=== PATIENT | male | born 1975 | race Hispanic/Latino ===

== ENCOUNTER 2016-12-02 15:21 | Emergency (ER) | payer BC ==
[2016-12-02] MEDS ORDERED: ZOFRAN IV ONE (16:45)
[2016-12-02] MEDS ORDERED: NACL 0.9% 1000 ML 1,000 ML IV ONE (16:45)
[2016-12-02] MEDS ORDERED: MORPHINE IV ONE ×2 (16:45→20:07)
[2016-12-02] MEDS ORDERED: ZOSYN/NS 4.5GM/100ML 4.5 GM/100 ML VIAL IV ONE (16:51)
--- NOTE | 2016-12-02 16:51 | Emergency Department Report ---
Entered by LEEROY HENNING, acting as scribe for ZACHERY CALDERA NP. Chief Complaint: Abdominal Pain Stated Complaint: APPENDICITIS/INFECTED INCISION Time Seen by Provider: 12/02/16 16:42 - HPI History of Present Illness: Pt c/o RLQ pain that began today. Notes that he had a hernia repair from area 4 months ago. Reports constipation. - ROS Review of Systems: All system are negative unless stated in HPI above. - Exam Vital Signs: Vital Signs 12/02/16 16:12 Temperature 98.3 F Pulse Rate 70 Respiratory 16 Rate Blood Pressure 128/73 O2 Sat by Pulse 100 Oximetry Physical Exam: General: well nourished, well developed, 41 year old male Abdomen: RLQ tenderness. Positive rebound. Positive McBurney's point. Positive obturator. Positive heel strike. erythema RLQ, MSE screening note: Focused history and physical exam performed. Due to findings the following was ordered: s/p Hernia repair 4 months ago, rlq pain erythema , pos mcburneys,obturator and heal stike, n/v unable to tolerate po intake See above ED Medical Decision Making - Medical Decision Making Patient screened by provider in triage area. Labs sent in for patient. Patient to be seen by MD on main ED side. ED Disposition for MSE Condition: Stable This documentation as recorded by the scribe,LEEROY HENNING,accurately reflects the service I personally performed and the decisions made by me, ZACHERY CALDERA, JOSE.
[2016-12-02 17:19] LABS: Basophils % (Auto) 0.8 % (0.0-1.8); Hematocrit 41.8 % (35.5-45.6); Hemoglobin 13.8 gm/dl (11.8-15.2); Mean Corpuscular HGB Conc 33 % (32-34); Mean Corpuscular Hemoglobin 32 pg (28-32); Mean Corpuscular Volume 95 fl (84-94); Platelet Count 310 K/mm3 (140-440); Red Blood Count 4.39 M/mm3 (3.65-5.03); Red Cell Distribution Width 13.1 % (13.2-15.2); White Blood Count 8.7 K/mm3 (4.5-11.0)
[2016-12-02 17:28] LABS: Alanine Aminotransferase 16 units/L (7-56); Albumin 4.7 g/dL (3.9-5); Albumin/Globulin Ratio 1.9 %; Alkaline Phosphatase 70 units/L (35-129); Anion Gap 21 mmol/L; Blood Urea Nitrogen 16 mg/dL (9-20); Calcium 9.3 mg/dL (8.4-10.2); Carbon Dioxide 27 mmol/L (22-30); Chloride 99.7 mmol/L (98-107); Glucose 80 mg/dL (75-100); Potassium 4.3 mmol/L (3.6-5.0); Sodium 143 mmol/L (137-145); Total Protein 7.2 g/dL (6.3-8.2)
--- NOTE | 2016-12-02 18:35 | Cat Scan Report ---
FINAL REPORT EXAM: CT ABDOMEN PELVIS WO CON HISTORY: RLQ Pain , r/o appendicitis TECHNIQUE: Standard unenhanced CT of the abdomen and pelvis. Coronal and sagittal reconstruction was also performed. none. FINDINGS: No acute inflammatory process is seen in the right lower quadrant. The cecum dips into the right pelvis. The appendix dips into the deep right pelvis and is normal. Within the abdomen, the liver, pancreas, gallbladder, adrenal glands, and kidneys are unremarkable. Punctate splenic calcifications are likely granulomatous. No evidence for retroperitoneal or pelvic lymphadenopathy is seen. The bowel loops have normal caliber. No soft tissue mass, fluid collection, inflammatory change, or free air is seen within the abdomen or pelvis. Within the pelvis, the bladder is unremarkable. The prostate is normal. No evidence for mass or lymphadenopathy is seen in the pelvis. Images through the upper abdomen include the lung bases which are expanded and clear. Bony structures show no focal abnormalities and are intact. Narrowing of the superior right hip joint is likely related to mild osteoarthritis. IMPRESSION: No acute intra-abdominal process noted. No evidence for appendicitis. The appendix is normal.
[2016-12-02 18:49] LABS: Bilirubin,Urine NEG (Negative); Blood,Urine NEG (Negative); Ketones,Urine NEG (Negative); Leukocyte Esterase,Urine NEG (Negative); Mucus,Urine FEW /HPF; Nitrite,Urine NEG (Negative); Protein,Urine <15 mg/dL mg/dL (Negative); Urobilinogen,Urine < 2.0 mg/dL (<2.0); WBC,Urine < 1.0 /HPF (0.0-6.0)
--- NOTE | 2016-12-02 21:28 | Emergency Department Report ---
- General Chief complaint: Abdominal Pain Stated complaint: APPENDICITIS/INFECTED INCISION Time Seen by Provider: 12/02/16 16:44 Source: patient Mode of arrival: Ambulatory Limitations: No Limitations - History of Present Illness Initial comments: Maya josé a 41 yr old male, unknown to me, who presents to the ED c/o RLQ erythema with pain. Pt reports he had an R sided inguinal hernia repair 4 months ago with no complications, but for the past 3 days he noticed some pain and redness to the RLQ of his abdomen, above the surgical incision. Pt denies any trauma or skin infections in the past. Pt has tried OTC pain pills with no relief. He was evaluated by the urgent care and then instructed to come to the ED for further evaluation. Pt denies any fevers, chills, RESENDIZ, dizziness, NVD, SOB, CP, changes in urinary or bowel movements, travel, or sick contacts. - Related Data Previous Rx's Medication Instructions Recorded Last Taken Type ALBUTEROL Inhaler [ProAir HFA 1 puff IH BID PRN #1 inha 04/25/15 Unknown Rx Inhaler] Amoxicillin/K Clav Tab [Augmentin 1 tab PO Q12HR #20 tab 04/25/15 Unknown Rx 875MG TAB] Promethazine Dm [Phenergan DM 10 ml PO TID PRN #150 ml 04/25/15 Unknown Rx 6.25-15 mg/5 ml] predniSONE [Deltasone] 20 mg PO QDAY #5 tab 04/25/15 Unknown Rx Acetaminophen/Codeine [Tylenol 1 tab PO Q6H PRN #15 tab 07/21/15 Unknown Rx /Codeine # 3 tab] Erythromycin [Erythromycin Ophth 0.5 inch OD BID #1 tube 07/21/15 Unknown Rx Oint] Ibuprofen [Motrin 800 MG tab] 800 mg PO Q8HR PRN #30 tablet 07/21/15 Unknown Rx Penicillin Vk [Veetids TAB] 500 mg PO QID #80 tablet 07/21/15 Unknown Rx Cephalexin [Keflex] 500 mg PO Q12HR #20 cap 12/02/16 Unknown Rx HYDROcodone/APAP 5-325 [[place] 1 each PO Q6HR PRN #12 tablet 12/02/16 Unknown Rx 5/325] Sulfamethoxazole/Trimethoprim 1 each PO BID #20 tablet 12/02/16 Unknown Rx [Bactrim DS TAB] Allergies Allergy/AdvReac Type Severity Reaction Status Date / Time No Known Allergies Allergy Unverified 12/02/16 16:16 Abscess Boil HPI - HPI Chief Complaint: Abdominal Pain Stated Complaint: APPENDICITIS/INFECTED INCISION Time Seen by Provider: 12/02/16 16:44 Home Medications: Previous Rx's Medication Instructions Recorded Last Taken Type ALBUTEROL Inhaler [ProAir HFA 1 puff IH BID PRN #1 inha 04/25/15 Unknown Rx Inhaler] Amoxicillin/K Clav Tab [Augmentin 1 tab PO Q12HR #20 tab 04/25/15 Unknown Rx 875MG TAB] Promethazine Dm [Phenergan DM 10 ml PO TID PRN #150 ml 04/25/15 Unknown Rx 6.25-15 mg/5 ml] predniSONE [Deltasone] 20 mg PO QDAY #5 tab 04/25/15 Unknown Rx Acetaminophen/Codeine [Tylenol 1 tab PO Q6H PRN #15 tab 07/21/15 Unknown Rx /Codeine # 3 tab] Erythromycin [Erythromycin Ophth 0.5 inch OD BID #1 tube 07/21/15 Unknown Rx Oint] Ibuprofen [Motrin 800 MG tab] 800 mg PO Q8HR PRN #30 tablet 07/21/15 Unknown Rx Penicillin Vk [Veetids TAB] 500 mg PO QID #80 tablet 07/21/15 Unknown Rx Cephalexin [Keflex] 500 mg PO Q12HR #20 cap 12/02/16 Unknown Rx HYDROcodone/APAP 5-325 [[place] 1 each PO Q6HR PRN #12 tablet 12/02/16 Unknown Rx 5/325] Sulfamethoxazole/Trimethoprim 1 each PO BID #20 tablet 12/02/16 Unknown Rx [Bactrim DS TAB] Allergies/Adverse Reactions: Allergies Allergy/AdvReac Type Severity Reaction Status Date / Time No Known Allergies Allergy Unverified 12/02/16 16:16 ED Review of Systems ROS: Stated complaint: APPENDICITIS/INFECTED INCISION Other details as noted in HPI Comment: All other systems reviewed and negative ED Past Medical Hx - Past Medical History Previous Medical History?: No - Surgical History Past Surgical History?: Yes Additional Surgical History: inguinal hernia repair - Social History Smoking Status: Current Every Day Smoker Substance Use Type: None - Medications Home Medications: Home Medications Medication Instructions Recorded Confirmed Last Taken Type ALBUTEROL Inhaler [ProAir HFA 1 puff IH BID PRN #1 inha 04/25/15 Unknown Rx Inhaler] Amoxicillin/K Clav Tab [Augmentin 1 tab PO Q12HR #20 tab 04/25/15 Unknown Rx 875MG TAB] Promethazine Dm [Phenergan DM 10 ml PO TID PRN #150 ml 04/25/15 Unknown Rx 6.25-15 mg/5 ml] predniSONE [Deltasone] 20 mg PO QDAY #5 tab 04/25/15 Unknown Rx Acetaminophen/Codeine [Tylenol 1 tab PO Q6H PRN #15 tab 07/21/15 Unknown Rx /Codeine # 3 tab] Erythromycin [Erythromycin Ophth 0.5 inch OD BID #1 tube 07/21/15 Unknown Rx Oint] Ibuprofen [Motrin 800 MG tab] 800 mg PO Q8HR PRN #30 tablet 07/21/15 Unknown Rx Penicillin Vk [Veetids TAB] 500 mg PO QID #80 tablet 07/21/15 Unknown Rx Cephalexin [Keflex] 500 mg PO Q12HR #20 cap 12/02/16 Unknown Rx HYDROcodone/APAP 5-325 [[place] 1 each PO Q6HR PRN #12 tablet 12/02/16 Unknown Rx 5/325] Sulfamethoxazole/Trimethoprim 1 each PO BID #20 tablet 12/02/16 Unknown Rx [Bactrim DS TAB] ED Physical Exam - General Limitations: No Limitations General appearance: alert, in no apparent distress - Head Head exam: Present: atraumatic, normocephalic - Eye Eye exam: Present: normal appearance - ENT ENT exam: Present: mucous membranes moist - Neck Neck exam: Present: normal inspection - Respiratory Respiratory exam: Present: normal lung sounds bilaterally. Absent: respiratory distress - Cardiovascular Cardiovascular Exam: Present: regular rate, normal rhythm. Absent: systolic murmur, diastolic murmur, rubs, gallop - GI/Abdominal GI/Abdominal exam: Present: soft, tenderness (RLQ overlying erythema), normal bowel sounds, other (RLQ inguinal hernia surgical scar, well healed, no erythema over the incision). Absent: distended, guarding, rebound, rigid, mass , pulsatile mass, hernia - Rectal Rectal exam: Present: deferred - Extremities Exam Extremities exam: Present: normal inspection - Back Exam Back exam: Present: normal inspection - Neurological Exam Neurological exam: Present: alert, oriented X3 - Psychiatric Psychiatric exam: Present: normal affect, normal mood - Skin Skin exam: Present: warm, dry, erythema (RLQ, marked with pen). Absent: rash ED Course Vital Signs 12/02/16 12/02/16 12/02/16 16:12 17:42 17:46 Temperature 98.3 F 98.1 F Pulse Rate 70 66 Respiratory 16 16 16 Rate Blood Pressure 128/73 Blood Pressure 104/72 [Left] O2 Sat by Pulse 100 97 100 Oximetry 12/02/16 12/02/16 19:51 21:46 Temperature 98.0 F 97.9 F Pulse Rate 63 74 Respiratory 20 15 Rate Blood Pressure Blood Pressure 126/78 115/72 [Left] O2 Sat by Pulse 96 99 Oximetry ED Medical Decision Making - Lab Data Result diagrams: 12/02/16 16:51 12/02/16 16:51 - Radiology Data Radiology results: report reviewed, image reviewed CT abd pelvis: No acute intraabdominal pathology noted - Medical Decision Making Discussed CT results with the patient. This is likely a superficial skin infection, will treat as cellulitis. Area marked with pen, instructed patient to continue antibiotics prescribed and to monitor the site. If the redness extends beyond the lines he is to return to the ED, otherwise follow up with his PMD Critical care attestation.: If time is entered above; I have spent that time in minutes in the direct care of this critically ill patient, excluding procedure time. ED Disposition Clinical Impression: Cellulitis, Abdominal pain Disposition: -01 TO HOME OR SELFCARE Is pt being admited?: No Condition: Stable Instructions: Cellulitis (ED), Abdominal Pain (ED) Prescriptions: Cephalexin [Keflex] 500 mg PO Q12HR #20 cap HYDROcodone/APAP 5-325 [[place] 5/325] 1 each PO Q6HR PRN #12 tablet PRN Reason: Pain Sulfamethoxazole/Trimethoprim [Bactrim DS TAB] 1 each PO BID #20 tablet Referrals: PRIMARY CARE, [Primary Care Provider] - 3-5 Days Forms: Work/School Release Form(ED)
[2016-12-02 21:47] VITALS: BP 115/72
== END 2016-12-02 21:47 | disposition home or self-care (01) ==
LOC: ED 15:21
DX: L03.311 Cellulitis of abdominal wall (principal); F17.200 Nicotine dependence, unspecified, uncomplicated
CPT/HCPCS: 36415; 74176; 80053; 81001; 85025; 86850; 86900; 86901; 96365; 96375; 96376; 99284; J2270; J2405; J2543; J7030